=== PATIENT | female | born 1940 | race Caucasian/White ===

== ENCOUNTER 2016-12-23 02:33 | Emergency (ER) | payer MEDICARE ==
[2013-05-11 08:32] VITALS: BMI 21.9
[~2016-12-23 02:33] MED LIST: INDOCIN25 MG PO
== END 2016-12-23 04:10 | disposition home or self-care (01) ==
LOC: D.ER 02:33
DX: J20.9 Acute bronchitis, unspecified (principal)

== ENCOUNTER 2017-02-15 23:49 | Emergency (ER) | payer MEDICARE ==
[2013-05-11 08:32] VITALS: BMI 21.9
== END 2017-02-16 01:30 | disposition home or self-care (01) ==
LOC: D.ER 23:49
DX: H66.91 Otitis media, unspecified, right ear (principal); F17.200 Nicotine dependence, unspecified, uncomplicated